=== PATIENT | male | born 2000 | race African-American/Black ===

== ENCOUNTER 2019-11-13 19:02 | Emergency (ER) | payer OTHER ==
[~2019-11-13] VITALS: Ht 182.9 cm; Wt 90.9 kg
[2019-11-13] MEDS ORDERED: IBUPROFEN 600MG TAB PO ONE (19:30)
[2019-11-13 19:49] LABS: BASO % 0.5 % (0.0-1.0); EOS # 0.1 10^3/uL (0.0-0.5); EOS % 1.4 % (0.0-3.0); HEMATOCRIT 47.2 % (42.0-52.0); HEMOGLOBIN 15.5 g/dl (13.5-17.5); LYMPH # 2.1 10^3/uL (1.5-5.0); LYMPH % 37.5 % (24.0-44.0); MEAN CORPUSCULAR HEMOGLOBIN 26.4 pg (27.0-33.0); MEAN CORPUSCULAR HGB CONC 32.8 g/dl (32.0-36.5); MEAN CORPUSCULAR VOLUME 80.3 fl (80.0-96.0); MONO # 0.6 10^3/uL (0.0-0.8); MONO % 10.8 % (0.0-5.0); NEUTROPHILS # 2.8 10^3/uL (1.5-8.5); NEUTROPHILS % 49.6 % (36.0-66.0); PLATELET COUNT, AUTOMATED 224 10^3/uL (150-450); RED BLOOD COUNT 5.88 10^6/uL (4.30-6.10); WHITE BLOOD COUNT 5.7 10^3/uL (4.0-10.0)
--- NOTE | 2019-11-13 20:20 | REPVR ---
PROCEDURE INFORMATION: Exam: XR Chest, 2 Views Exam date and time: 11/13/2019 7:41 PM Age: 19 years old Clinical indication: Chest pain TECHNIQUE: Imaging protocol: XR of the chest Views: 2 views. COMPARISON: No relevant prior studies available. FINDINGS: Lungs: Unremarkable. No consolidation. Pleural space: Unremarkable. No pleural effusion. No pneumothorax. Heart/Mediastinum: Unremarkable. No cardiomegaly. Bones/joints: Unremarkable. IMPRESSION: No acute findings. Electronically signed by: Conchita Marley On 11/13/2019 20:19:57 PM
[2019-11-13 20:36] LABS: ALBUMIN 4.3 GM/DL (3.2-5.2); ALT/SGPT 39 U/L (12-78); BILIRUBIN,DIRECT 0.2 MG/DL (0.0-0.2); BILIRUBIN,TOTAL 0.6 MG/DL (0.2-1.0); BLOOD UREA NITROGEN 9 MG/DL (7-18); CALCIUM LEVEL 9.5 MG/DL (8.5-10.1); CARBON DIOXIDE LEVEL 29 MEQ/L (21-32); CHLORIDE LEVEL 107 MEQ/L (98-107); CK-MB VALUE MASS 1.5 NG/ML (<3.6); CPK CREATINE PHOSPHOKINASE 2245 U/L (39-308); CREATININE FOR GFR 1.03 MG/DL (0.70-1.30); GLOMERULAR FILTRATION RATE > 60.0 (>60); GLUCOSE, FASTING 94 MG/DL (70-100); LIPASE 140 U/L (73-393); MB/CK RELATIVE INDEX 0.07 (< OR =4); POTASSIUM SERUM 3.9 MEQ/L (3.5-5.1); SODIUM LEVEL 140 MEQ/L (136-145); THYROID STIMULATING HORMONE 0.908 uIU/ML (0.358-3.740); TOTAL PROTEIN 8.2 GM/DL (6.4-8.2); TROPONIN I < 0.02 NG/ML (< 0.10)
[2019-11-13] MEDS ORDERED: MELO15TA28 PO (21:07)
[2019-11-13] MEDS ORDERED: PEPC1TAB5 PO (21:07)
[2019-11-13 21:17] VITALS: BP 158/96
--- NOTE | 2019-11-18 19:18 | ECGEPIP ---
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
== END 2019-11-13 21:22 | disposition home or self-care (01) ==
LOC: M ED 19:02
DX: R07.9 Chest pain, unspecified (principal); I44.7 Left bundle-branch block, unspecified

== ENCOUNTER 2019-11-19 07:50 | Emergency (ER) | payer OTHER ==
[~2019-11-19] VITALS: Ht 190.5 cm; Wt 91.3 kg
[~2019-11-19 07:50] MED LIST: MELO15TA28 PO; PEPC1TAB5 PO
[2019-11-19] MEDS ORDERED: ISOVUE-370 76% 100ML VIAL As Ordered ONE (08:55)
--- NOTE | 2019-11-19 09:49 | REPVR ---
PROCEDURE INFORMATION: Exam: CT Angiography Chest With Contrast Exam date and time: 11/19/2019 9:06 AM Age: 19 years old Clinical indication: Pleuritic chest pain TECHNIQUE: Imaging protocol: Computed tomographic angiography of the chest with intravenous contrast. Coronal and sagittal reformats were created and reviewed. 3D rendering (Not supervised by radiologist): MIP and/or 3D reconstructed images were created by the technologist. Radiation optimization: All CT scans at this facility use at least one of these dose optimization techniques: automated exposure control; mA and/or kV adjustment per patient size (includes targeted exams where dose is matched to clinical indication); or iterative reconstruction. Contrast material: ISOVUE 370; Contrast volume: 100 ml; Contrast route: INTRAVENOUS (IV); COMPARISON: CR Chest, 2 view PA, Lat 11/13/2019 7:28 PM FINDINGS: Pulmonary arteries: The main pulmonary arterial trunk is not enlarged. No pulmonary arterial filling defect of an acute or chronic pulmonary arterial embolism. Aorta: No thoracic aortic aneurysm. Thyroid: Unremarkable as visualized. Lungs: The trachea is unremarkable. No pulmonary mass, suspicious nodule, consolidation, or edema. Incidental left lower lobe 5 mm thin-walled cyst. Pleural space: No pleural effusion, mass or calcification. No pneumothorax. Heart: Heart size is within normal limits. No pericardial effusion. Mediastinal space: The esophagus is unremarkable. Small chevron-shaped soft tissue within the anterior mediastinum without mass effect is consistent with residual thymus. No pneumomediastinum. Lymph nodes: No enlarged lymph nodes. Bones/joints: No acute osseous abnormality. Soft tissues: Unremarkable. IMPRESSION: Negative for pulmonary arterial embolism. Electronically signed by: Jett Turk On 11/19/2019 09:48:49 AM
--- NOTE | 2019-11-19 09:52 | REPVR ---
PROCEDURE INFORMATION: Exam: US Duplex Left Lower Extremity Veins, Limited Exam date and time: 11/19/2019 9:40 AM Age: 19 years old Clinical indication: Pain; Leg, lower; Left TECHNIQUE: Imaging protocol: Real-time Duplex ultrasound of the Left Lower Extremity with 2-D garza scale, color Doppler flow and spectral waveform analysis with image documentation. Limited exam focused on the left lower extremity veins. COMPARISON: No relevant prior studies available. FINDINGS: Left deep veins: The common femoral, femoral, and popliteal veins are patent without thrombus. Normal compressibility and/or augmentation response. Left superficial veins: The saphenofemoral junction is patent without thrombus. Soft tissues: Unremarkable. IMPRESSION: No evidence of deep vein thrombosis in the visualized lower extremity. Electronically signed by: Jett Turk On 11/19/2019 09:52:30 AM
[2019-11-19] MEDS ORDERED: KETOROLAC 30 MG/ML 1ML VIAL IV ONE (10:30)
[2019-11-19 11:35] VITALS: O2SAT 98
[2019-11-19] MEDS ORDERED: LORazepam 2 MG/ML VIAL IV STA (11:38)
[2019-11-19 14:35] LABS: AMPHETAMINES LEVEL URINE NEGATIVE (NEGATIVE); BARBITURATES URINE NEGATIVE (NEGATIVE); BENZODIAZEPINES URINE NEGATIVE (NEGATIVE); CANNABINOIDS URINE NEGATIVE (NEGATIVE); COCAINE METABOLITE URINE NEGATIVE (NEGATIVE); METHADONE URINE NEGATIVE (NEGATIVE); OPIATES URINE NEGATIVE (NEGATIVE); PHENCYCLIDINE URINE NEGATIVE (NEGATIVE)
[2019-11-19] MEDS ORDERED: KETO10TAB PO (14:54)
[2019-11-19 15:46] VITALS: BP 117/62
--- NOTE | 2019-11-22 11:09 | ECGEPIP ---
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
--- NOTE | 2019-11-22 11:19 | ECGEPIP ---
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
== END 2019-11-19 15:55 | disposition home or self-care (01) ==
LOC: M ED 07:50
DX: R07.89 Other chest pain (principal); I44.7 Left bundle-branch block, unspecified; Z79.899 Other long term (current) drug therapy
CPT/HCPCS: 71275; 80047; 80307; 82550; 84484; 85652; 93005; 93971; 96374; 96375; 99285; J1885; J2060; Q9967

== ENCOUNTER 2020-01-21 10:54 | Emergency (ER) | payer OTHER ==
[~2020-01-21] VITALS: Ht 185.4 cm; Wt 99.0 kg
[~2020-01-21 10:54] MED LIST changes: +KETO10TAB PO
[2020-01-21] MEDS ORDERED: IBUP-1114 PO (11:05)
[2020-01-21] MEDS ORDERED: ASPIRIN 325 MG TAB PO ONE (11:30)
[2020-01-21 11:43] LABS: BASO % 0.6 % (0.0-1.0); EOS # 0.1 10^3/uL (0.0-0.5); EOS % 1.5 % (0.0-3.0); HEMATOCRIT 46.1 % (42.0-52.0); LYMPH # 0.8 10^3/uL (1.5-5.0); LYMPH % 14.4 % (24.0-44.0); MEAN CORPUSCULAR HEMOGLOBIN 26.1 pg (27.0-33.0); MEAN CORPUSCULAR HGB CONC 32.5 g/dl (32.0-36.5); MEAN CORPUSCULAR VOLUME 80.3 fl (80.0-96.0); MONO % 18.4 % (0.0-5.0); NEUTROPHILS # 3.5 10^3/uL (1.5-8.5); NEUTROPHILS % 64.5 % (36.0-66.0); PLATELET COUNT, AUTOMATED 181 10^3/uL (150-450); RED BLOOD COUNT 5.74 10^6/uL (4.30-6.10); WHITE BLOOD COUNT 5.4 10^3/uL (4.0-10.0)
[2020-01-21 11:54] LABS: INR 0.97; PROTHROMBIN TIME 13.1 SECONDS (12.5-14.3)
--- NOTE | 2020-01-21 11:56 | REP ---
INDICATION: CHEST PAIN. COMPARISON: 11/13/2019. TECHNIQUE: SINGLE PORTABLE AP VIEW OF THE CHEST WAS PERFORMED. FINDINGS: THERE IS NO ACUTE INFILTRATE OR PULMONARY EDEMA. LUNGS ARE CLEAR. HEART IS NOT SIGNIFICANTLY ENLARGED. MEDIASTINAL SILHOUETTE IS UNREMARKABLE. THE VISUALIZED OSSEOUS STRUCTURES ARE INTACT. IMPRESSION: NO ACUTE PULMONARY DISEASE. <Electronically signed by Erick Gibbons > 01/21/20 [id number]
[2020-01-21 12:08] LABS: BLOOD UREA NITROGEN 12 MG/DL (7-18); CALCIUM LEVEL 8.8 MG/DL (8.5-10.1); CARBON DIOXIDE LEVEL 27 MEQ/L (21-32); CHLORIDE LEVEL 105 MEQ/L (98-107); CK-MB VALUE MASS < 1.0 NG/ML (<3.6); CPK CREATINE PHOSPHOKINASE 130 U/L (39-308); CREATININE FOR GFR 1.01 MG/DL (0.70-1.30); GLOMERULAR FILTRATION RATE > 60.0 (>60); GLUCOSE, FASTING 87 MG/DL (70-100); MB/CK RELATIVE INDEX 0.77 (< OR =4); SODIUM LEVEL 137 MEQ/L (136-145); TROPONIN I < 0.02 NG/ML (< 0.10)
[2020-01-21 12:45] VITALS: BP 136/84
--- NOTE | 2020-01-22 14:13 | ECGEPIP ---
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
== END 2020-01-21 12:59 | disposition home or self-care (01) ==
LOC: M ED 10:54 → EEVIPCON 10:54 → M ED 12:59
DX: R07.9 Chest pain, unspecified (principal); I51.9 Heart disease, unspecified
CPT/HCPCS: 36415; 71045; 80048; 82550; 82553; 84484; 85025; 85610; 93005; 93041; 94760; 99285; U0003

== ENCOUNTER → 2020-04-14 | Outpatient (CLI) | payer OTHER ==
[~2020-04-14] MED LIST changes: +IBUP-1114 PO
--- NOTE | 2020-04-16 12:25 | ECHO ---
DATE OF PROCEDURE: 04/14/2020 Age: 19 Gender: Male Height: 72 inches Weight: 206 pounds Body surface area: 2.15 m2 PATIENT LOCATION: Outpatient. REFERRING PHYSICIAN: Pepe Dominguez M.D. INDICATION: Abnormal EKG left bundle branch block. MEASUREMENTS: 2D Measurements: RV 4.4 cm LV 5.0 cm Septum 1.1 cm Posterior wall 1.1 cm Aortic Root 3.2 cm LA 3.7 cm LVEF 50% Doppler Measurements: AV 1.16 m/s LVOT 0.89 m/s MV-E 82, A 40, E/A ratio 2 Early mitral deceleration time 151 msec E prime medial 7.4, A prime medial 5.9, E prime lateral 11.9 Average E/E prime ratio 8.5/PCWP 12.4 mmHg PV 1.0 m/s Pulmonary artery acceleration time 134 msec RVSP 28 mmHg IVC 1.7 cm COMMENTS: Normal sinus rhythm with left bundle branch block. M-mode and two-dimensional echocardiography was performed with pulse, continuous wave, color flow, and tissue Doppler studies. Normal left ventricular size and wall thickness with paradoxical septal motion, but other left ventricular wall segments move normally with minimally, if at all, depressed global left ventricular systolic function. Normal left atrial size and Doppler assessment of LV diastolic function and estimated mean left atrial pressure. Normal right heart chamber sizes and wall motion with normal pulmonary arterial pressure. Normal IVC size and collapse against an elevated central venous pressure. Normal aortic dimensions. Normal appearing and functioning aortic valve. Normal appearing and functioning mitral valve without insufficiency. Normal appearing tricuspid valve with very mild to mild insufficiency (physiologic). No apparent intracardiac mass or pericardial effusion. MTDD
== END ==
LOC: M CARPUL 09:46
PROVIDERS: ATTEND Internal Medicine
DX: I44.7 Left bundle-branch block, unspecified (principal)

== ENCOUNTER 2020-06-30 13:27 | Emergency (ER) | payer OTHER ==
[~2020-06-30] VITALS: Ht 188 cm; Wt 94.0 kg
[2020-06-30] MEDS ORDERED: NS 1,000 ML IV ONE (15:05)
[2020-06-30] MEDS ORDERED: ONDANSETRON 4MG/2ML VIAL IV ONE (15:05)
[2020-06-30] MEDS ORDERED: PANTOPRAZOLE 40MG VIAL (C9113 PER 1) IV ONE (15:05)
[2020-06-30 15:52] LABS: BASO % 0.6 % (0.0-1.0); EOS # 0.1 10^3/uL (0.0-0.5); EOS % 1.9 % (0.0-3.0); HEMATOCRIT 50.2 % (42.0-52.0); HEMOGLOBIN 16.9 g/dl (13.5-17.5); LYMPH # 2.2 10^3/uL (1.5-5.0); LYMPH % 46.7 % (24.0-44.0); MEAN CORPUSCULAR HEMOGLOBIN 28.5 pg (27.0-33.0); MEAN CORPUSCULAR HGB CONC 33.7 g/dl (32.0-36.5); MEAN CORPUSCULAR VOLUME 84.5 fl (80.0-96.0); MONO # 0.4 10^3/uL (0.0-0.8); NEUTROPHILS # 1.9 10^3/uL (1.5-8.5); NEUTROPHILS % 41.6 % (36.0-66.0); PLATELET COUNT, AUTOMATED 221 10^3/uL (150-450); RED BLOOD COUNT 5.94 10^6/uL (4.30-6.10); WHITE BLOOD COUNT 4.7 10^3/uL (4.0-10.0)
[2020-06-30 16:05] LABS: INR 1.01; PROTHROMBIN TIME 13.5 SECONDS (12.5-14.3)
[2020-06-30 16:06] LABS: PARTIAL THROMBOPLASTIN TIME 31.2 SECONDS (24.2-38.5)
[2020-06-30 16:15] LABS: ALBUMIN 4.2 GM/DL (3.2-5.2); ALT/SGPT 20 U/L (12-78); BILIRUBIN,DIRECT 0.2 MG/DL (0.0-0.2); BILIRUBIN,TOTAL 0.6 MG/DL (0.2-1.0); CK-MB VALUE MASS < 1.0 NG/ML (<3.6); CPK CREATINE PHOSPHOKINASE 107 U/L (39-308); LIPASE 143 U/L (73-393); MB/CK RELATIVE INDEX 0.93 (< OR =4); TOTAL PROTEIN 7.9 GM/DL (6.4-8.2); TROPONIN I < 0.02 NG/ML (< 0.10)
[2020-06-30] MEDS ORDERED: ISOVUE-370 76% 100ML VIAL As Ordered ONE (16:59)
--- NOTE | 2020-06-30 17:33 | REPVR ---
PROCEDURE INFORMATION: Exam: CT Abdomen And Pelvis With Contrast Exam date and time: 06/30/2020 5:11 PM Age: 20 years old Clinical indication: Abdominal pain; Additional info: Left sided abd pain TECHNIQUE: Imaging protocol: Computed tomography of the abdomen and pelvis with contrast. Axial, coronal and sagittal reformatted images were created and reviewed. Radiation optimization: All CT scans at this facility use at least one of these dose optimization techniques: automated exposure control; mA and/or kV adjustment per patient size (includes targeted exams where dose is matched to clinical indication); or iterative reconstruction. Contrast material: ISO 370; Contrast volume: 100 ml; Contrast route: INTRAVENOUS (IV); COMPARISON: No relevant prior studies available. FINDINGS: Liver: Unremarkable. Gallbladder and bile ducts: No radiodense gallstones. No biliary ductal dilatation. Pancreas: Unremarkable. Spleen: Unremarkable. Adrenal glands: Normal. No mass. Kidneys and ureters: No mass. No radiodense calculi. No hydronephrosis. Stomach and bowel: No bowel wall thickening. No obstruction. No pneumatosis. Appendix: Mildly dilated appendix extending into the right posterior pelvis. No significant periappendiceal inflammatory change. Intraperitoneal space: No free fluid. No organized fluid collection. No free air. Vasculature: Unremarkable. No aneurysm. Lymph nodes: Small mesenteric lymph nodes, nonspecific in appearance. No pathologically enlarged lymph nodes. Urinary bladder: Unremarkable as visualized. Reproductive: Unremarkable. Bones/joints: No acute osseous abnormality. Soft tissues: Unremarkable. IMPRESSION: 1. Mildly dilated appendix extending into the right posterior pelvis. No significant periappendiceal inflammatory change. Mild/early acute appendicitis cannot be entirely excluded. Correlate for clinical signs and symptoms. 2. Additional findings, as above. Electronically signed by: Yuniel Jennings On 06/30/2020 17:33:53 PM
[2020-06-30 17:43] VITALS: BP 115/63
--- NOTE | 2020-06-30 23:09 | ECGEPIP ---
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
== END 2020-06-30 18:36 | disposition home or self-care (01) ==
LOC: M ED 13:27
DX: K62.9 Disease of anus and rectum, unspecified (principal); R10.32 Left lower quadrant pain; F33.9 Major depressive disorder, recurrent, unspecified; F41.9 Anxiety disorder, unspecified; I44.7 Left bundle-branch block, unspecified; G47.33 Obstructive sleep apnea (adult) (pediatric)
CPT/HCPCS: 74177; 80047; 80076; 81001; 82550; 82553; 83690; 84484; 85025; 85610; 85730; 86850; 86900; 86901; 93005; 96361; 96374; 96375; 99284; C9113; J2405; Q9967

== ENCOUNTER 2020-07-04 20:54 | Emergency (ER) | payer OTHER ==
[~2020-07-04] VITALS: Ht 188 cm; Wt 94.2 kg
[2020-07-04] MEDS ORDERED: NS 1,000 ML IV ONE (21:10)
[2020-07-04] MEDS ORDERED: MORPHINE 4 MG/ML 1ML VIAL/SYRINGE (J2270) IV ONE ×2 (21:25→22:05)
[2020-07-04] MEDS ORDERED: ONDANSETRON 4MG/2ML VIAL IV ONE (21:25)
[2020-07-04 21:42] LABS: BASO % 0.5 % (0.0-1.0); EOS # 0.1 10^3/uL (0.0-0.5); EOS % 1.7 % (0.0-3.0); HEMATOCRIT 49.3 % (42.0-52.0); HEMOGLOBIN 16.8 g/dl (13.5-17.5); LYMPH # 2.6 10^3/uL (1.5-5.0); LYMPH % 45.1 % (24.0-44.0); MEAN CORPUSCULAR HEMOGLOBIN 28.3 pg (27.0-33.0); MEAN CORPUSCULAR HGB CONC 34.1 g/dl (32.0-36.5); MONO # 0.7 10^3/uL (0.0-0.8); MONO % 12.5 % (2.0-8.0); NEUTROPHILS # 2.3 10^3/uL (1.5-8.5); NEUTROPHILS % 39.7 % (36.0-66.0); PLATELET COUNT, AUTOMATED 218 10^3/uL (150-450); RED BLOOD COUNT 5.94 10^6/uL (4.30-6.10); WHITE BLOOD COUNT 5.7 10^3/uL (4.0-10.0)
[2020-07-04 22:07] LABS: ALBUMIN 4.2 GM/DL (3.2-5.2); BILIRUBIN,DIRECT 0.1 MG/DL (0.0-0.2); BILIRUBIN,TOTAL 0.6 MG/DL (0.2-1.0); TOTAL PROTEIN 8.1 GM/DL (6.4-8.2)
[2020-07-04] MEDS ORDERED: ISOVUE-370 76% 100ML VIAL As Ordered ONE (22:19)
--- NOTE | 2020-07-04 23:18 | REPVR ---
PROCEDURE INFORMATION: Exam: CT Abdomen And Pelvis With Contrast Exam date and time: 07/04/2020 10:39 PM Age: 20 years old Clinical indication: Abdominal pain; Localized; Right; Additional info: Mild dilated appendix recently, rlq pain now persistent TECHNIQUE: Imaging protocol: Computed tomography of the abdomen and pelvis with contrast. Radiation optimization: All CT scans at this facility use at least one of these dose optimization techniques: automated exposure control; mA and/or kV adjustment per patient size (includes targeted exams where dose is matched to clinical indication); or iterative reconstruction. Contrast material: ISOVUE 370; Contrast volume: 100 ml; Contrast route: INTRAVENOUS (IV); COMPARISON: CT ABD/PEL W/IV CONTRAST ONLY 06/30/2020 5:05 PM FINDINGS: Lungs: No suspicious mass or airspace process in the visualized lung bases. Liver: Liver appears normal with no focal abnormality. Gallbladder and bile ducts: Gallbladder is present and shows no evidence of gallstone. Pancreas: Pancreas appears normal. No focal mass or peripancreatic inflammation. Spleen: Spleen appears homogeneous without focal mass. Adrenal glands: Adrenal glands are normal in appearance. Kidneys and ureters: Kidneys demonstrate no hydronephrosis or abnormal enhancement. Stomach and bowel: No evidence of small bowel obstruction. No evidence of acute diverticulitis. Terminal ileum has normal appearance. Appendix: Normal caliber appendix is identified, with no adjacent inflammation. Intraperitoneal space: No pneumoperitoneum. Vasculature: No aortic aneurysm. Main portal and splenic veins enhance normally. Lymph nodes: No enlarged lymph nodes. Urinary bladder: Urinary bladder appears normal. Reproductive: No overt enlargement of the prostate gland. Bones/joints: Bony structures show no acute fracture or destructive process. Soft tissues: No abdominal wall hernia. No concerning focal abnormality of the extra-abdominal and pelvic soft tissues. IMPRESSION: 1. No evidence of acute appendicitis with normal appearing air-filled appendix identified. 2. No acute surgical or inflammatory process to explain clinical symptoms. Electronically signed by: Morales Hood On 07/04/2020 23:18:09 PM
[2020-07-05] VITALS: BP 139/75
== END 2020-07-05 00:44 | disposition home or self-care (01) ==
LOC: M ED 20:54
DX: R10.31 Right lower quadrant pain (principal); F17.200 Nicotine dependence, unspecified, uncomplicated
CPT/HCPCS: 74177; 80047; 80076; 83605; 83690; 85025; 96361; 96374; 96375; 99284; J2270; J2405; Q9967; U0002